=== PATIENT | female | born 1950 | race Caucasian/White ===

== ENCOUNTER 2022-08-10 10:08 | Emergency (ER) | payer BC ==
[~2022-08-10] VITALS: Ht 170.2 cm; Wt 65.8 kg
[2022-08-10] MEDS ORDERED: ONDANSETRON 4 MG/2 ML VIAL ONE (10:24)
[2022-08-10] MEDS ORDERED: MORPHINE SULFATE 4 MG/1 ML DISP.SYRIN ONE (10:24)
[2022-08-10] MEDS ORDERED: MORPHINE SULFATE 2 MG/1 ML DISP.SYRIN IV ONE (10:30)
[2022-08-10] MEDS ORDERED: ONDANSETRON 4 MG/2 ML VIAL IV ONE (10:30)
[2022-08-10] MEDS ORDERED: IV NORMAL SALINE 1000 ML BAG IV ONE (10:30)
[2022-08-10 10:33] LABS: HEMATOCRIT 35.6 % (31.2-41.9); MEAN CORPUSCULAR HEMOGLOBIN 26.3 uug (24.7-32.8); MEAN CORPUSCULAR VOLUME 80.1 fL (75.5-95.3); PLATELET COUNT (AUTO) 253 K/uL (179-408)
[2022-08-10 11:04] LABS: ALANINE AMINOTRANSFERASE 27 U/L (14-59); ALKALINE PHOSPHATASE 85 U/L (50-136); ASPARTATE AMINOTRANSFERASE 22 U/L (15-37); BILIRUBIN,DIRECT 0.1 mg/dL (0.0-0.2); BILIRUBIN,TOTAL 0.2 mg/dL (0.2-1.0); CARBON DIOXIDE 25 mmol/L (21-32); CHLORIDE 106 mmol/L (98-107); CREATININE 0.9 mg/dL (0.6-1.3); GLUCOSE 90 mg/dL (74-106); LIPASE 120 U/L (73-393); TOTAL PROTEIN, SERUM 7.5 g/dL (6.4-8.2)
[2022-08-10 11:18] LABS: UREA NITROGEN, BLOOD 18 mg/dL (7-18)
[2022-08-10] MEDS ORDERED: IOHEXOL 300MG/ML 100 ML INFUS..BTL ONE (11:36)
[2022-08-10] MEDS ORDERED: SWABABLE VALVE TRANSFER SET EA MC ONE (11:36)
[2022-08-10] MEDS ORDERED: IV NORMAL SALINE 250 ML IV ONE (11:37)
--- NOTE | 2022-08-10 11:41 | NUR ---
Patient taken for CT scan.
[2022-08-10 12:58] LABS: *BILIRUBIN,URIN NEGATIVE (NEGATIVE); *CLARITY,URINE CLEAR (CLEAR); *COLOR,URINE YELLOW (YELLOW); *KETONES,URINE NEGATIVE (NEGATIVE); *UROBILINOGEN,URINE 0.2 E.U./dl (NORMAL); LEUKOCYTE ESTERASE ,URINE NEGATIVE (NEGATIVE); NITRITE, URINE NEGATIVE (NEGATIVE); UGLUCOSE NEGATIVE (NEGATIVE)
[2022-08-10 12:59] LABS: *BLOOD, URINE TRACE (NEGATIVE)
[2022-08-10 13:14] LABS: BACTERIA,URINE NONE SEEN /HPF (NONE SEEN); RBC,URINE 0-3 /HPF (0-3); SQUAMOUS EPITHELIAL CELL,UR FEW /HPF (NONE SEEN); WBC,URINE 0-3 /HPF (0-3)
[2022-08-10 13:15] LABS: MUCUS,URINE FEW /LPF (0-FEW)
--- NOTE | 2022-08-10 14:22 | NUR ---
Patient taken for nuclear medicine scan of gallbladder
--- NOTE | 2022-08-10 16:48 | NUR ---
iv d/c, pressure applied at site and pressure dressing applied. Patient discharged to home in stable condition. Written and verbal after care instructions given. Patient verbalizes understanding of instructions. Stressed follow up or return to ER for worsening s/s.
== END 2022-08-10 16:49 | disposition home or self-care (01) ==
LOC: ER 10:08
DX: R10.11 Right upper quadrant pain (principal); R10.31 Right lower quadrant pain; I25.10 Atherosclerotic heart disease of native coronary artery without angina pectoris; Z95.5 Presence of coronary angioplasty implant and graft; R00.0 Tachycardia, unspecified
CPT/HCPCS: 99285; 78445; 74177; 96374; 71045; 96361; 96375; 80076; 80048; 81001; 83690; 85025; 84484; 36415; 93005; J2405; Q9967; J2270; J7040; A9537; A4663